=== PATIENT | male | born 1935 | race Caucasian/White ===

== ENCOUNTER 2021-09-27 11:26 | Observation (INO) | payer MEDICARE, BC ==
[~2021-09-27] VITALS: Ht 180.3 cm; Wt 77.7 kg
[2021-09-27 12:00] VITALS: BP 132/80
[2021-09-27] MEDS ORDERED: diphenhydrAMINE 25mg capsule PO PRN (12:00)
[2021-09-27] MEDS: normal saline 1,000 ML IV SCH ×2 (12:00→21:16)
[2021-09-27] MEDS ORDERED: LORazepam 0.5 MG tablet PO PRN (12:00)
[2021-09-27] MEDS ORDERED: nitroGLYCERIN 0.4mg SUBLingual tab SL PRN ×2 (12:00→19:20)
[2021-09-27] MEDS ORDERED: CHOL100025 PO (12:49)
[2021-09-27] MEDS ORDERED: ROSU40TA22 PO (12:49)
[2021-09-27] MEDS ORDERED: CALC-1215 PO (12:49)
[2021-09-27] MEDS ORDERED: LISI10TA27 PO (12:49)
[2021-09-27] MEDS ORDERED: NIAC500C12 PO (12:49)
[2021-09-27] MEDS ORDERED: METO-395 PO (12:49)
[2021-09-27] MEDS ORDERED: AMLO10TA13 PO (12:49)
[2021-09-27] MEDS ORDERED: OMEP20TA43 PO (12:49)
[2021-09-27] MEDS ORDERED: CHLO25TA10 PO (12:49)
[2021-09-27] MEDS ORDERED: fentaNYL/PF 50MCG/1 ML 2ML syringe ONE (16:38)
[2021-09-27] MEDS ORDERED: iohexol 350MG/ML 100ml bottle IV ONE ×2 (16:38→18:12)
[2021-09-27] MEDS ORDERED: midazolam 1 mg/ML 2ml injection ONE (16:38)
[2021-09-27] MEDS ORDERED: LIDOcaine 1% 30ml preserv. free vial ONE (18:06)
[2021-09-27 19:05] VITALS: BP 153/86
[2021-09-27] MEDS ORDERED: normal saline 1000ml 1,000 ML IV SCH (19:15)
[2021-09-27] MEDS ORDERED: ondansetron/PF 4mg/2ml inj IV PRN (19:15)
[2021-09-27] MEDS ORDERED: HYDROcodone/acetaminophen 5mg/325mg tablet PO PRN (19:20)
[2021-09-27] MEDS ORDERED: proCHLORperazine 10 MG/2 ml inj IV PRN (19:20)
[2021-09-27] MEDS ORDERED: pantoprazole 40mg Tablet.DR PO PRN (19:20)
[2021-09-27] MEDS ORDERED: HYDROcodone/acetaminophen 10/325mg tab PO PRN (19:20)
[2021-09-27] MEDS ORDERED: OXAZEpam 15mg capsule PO PRN (19:20)
--- NOTE | 2021-09-27 19:30 | NUR ---
Problems reprioritized. Patient report given, questions answered & plan of care reviewed with Will,RN, VSS, pt's R & R grouin dsg CDI with no hematoma, pt is in stable condition and in no distress at this time, all pt belongigns in pt's belong bag, call light within reach, RN at pt's bedside.
[2021-09-27 20:00] VITALS: BP 130/71
[2021-09-27] MEDS ORDERED: atorvastatin 20mg tablet PO SCH (21:00)
[2021-09-27 22:00] VITALS: BP 129/75
[2021-09-28 02:00] VITALS: BP 155/94
[2021-09-28] MEDS ORDERED: chlorthalidone 25mg tablet PO SCH (08:00)
[2021-09-28] MEDS ORDERED: calcium carbonate/vitamin D3 tablet PO SCH (08:00)
[2021-09-28] MEDS ORDERED: cholecalciferol (vitamin D3) 1,000 unit (25mcg) tablet PO SCH (08:00)
[2021-09-28] MEDS ORDERED: amLODIPine 5mg tablet PO SCH (08:00)
[2021-09-28] MEDS ORDERED: metoprolol succinate 25mg (24-HOUR) SR. Tablet PO SCH (08:00)
[2021-09-28] MEDS ORDERED: lisinopril 10 MG tablet PO SCH (08:00)
[2021-09-28] MEDS ORDERED: niacin 500mg ER (Niaspan) tablet PO SCH (08:00)
[2021-09-28] MEDS: normal saline 1,000 ML IV SCH (08:30)
--- NOTE | 2021-09-28 12:12 | NUR ---
ORDERS FOR DISCHARGE PUT IN PER DR. SMITH.
--- NOTE | 2021-09-28 13:26 | NUR ---
Pt discharged home with current instructions IV discontinued, Pt escorted to lobby to await ride from his daughter.
== END 2021-09-28 12:40 | disposition home or self-care (01) ==
LOC: SSTAY O 11:26 → PCU 3S 19:42 → INTOOBSV 19:42
PROVIDERS: ADMIT Internal Medicine Cardiovascular Disease; ATTEND Internal Medicine Cardiovascular Disease
DX: I25.41 Coronary artery aneurysm (principal); I10 Essential (primary) hypertension; E78.5 Hyperlipidemia, unspecified; I35.1 Nonrheumatic aortic (valve) insufficiency; I49.3 Ventricular premature depolarization; K21.9 Gastro-esophageal reflux disease without esophagitis; Z87.891 Personal history of nicotine dependence; Z79.899 Other long term (current) drug therapy
CPT/HCPCS: 75630; 93005; 93458; A6258; C1760; C1769; G0378; J1644; J2250; J3010; J3490; J7030; Q0163; Q9967; 99152; 99153; A4620